=== PATIENT | male | born 1990 | race African-American/Black ===

== ENCOUNTER 2023-05-30 22:19 | Emergency (ER) | payer OTHER ==
[~2023-05-30] VITALS: Ht 185.4 cm; Wt 65.7 kg
[~2023-05-30 22:19] MED LIST: DOXY100C5 MT
[2023-05-30 22:38] VITALS: BP 116/76; PULSE 71; RESP 16; TEMP 98.5; O2SAT 98
[2023-05-30] MEDS ORDERED: SULF1TAB48 MT (23:20)
== END 2023-05-30 23:43 | disposition home or self-care (01) ==
LOC: ER 22:19
DX: L72.3 Sebaceous cyst (principal)
CPT/HCPCS: 99283

== ENCOUNTER 2024-06-21 10:56 | Emergency (ER) | payer OTHER ==
[~2024-06-21] VITALS: Ht 185.4 cm; Wt 68.0 kg
[~2024-06-21 10:56] MED LIST changes: +SULF1TAB48 MT
[2024-06-21 11:05] VITALS: O2SAT 99
[2024-06-21] MEDS ORDERED: PENICILLIN G BENZATHINE 2,400,000 UNITS/4ML SYR IM ONE ×2 (12:45→13:00)
[2024-06-21] MEDS: PENICILLIN G BENZATHINE 2,400,000 UNITS/4ML SYR IM NR (13:22)
[2024-06-21 13:24] VITALS: BP 119/69; PULSE 68; RESP 16; TEMP 37.11408; O2SAT 99
== END 2024-06-21 13:25 | disposition home or self-care (01) ==
LOC: ER 10:56
DX: Z20.2 Contact with and (suspected) exposure to infections with a predominantly sexual mode of transmission (principal)
CPT/HCPCS: 99283; 96372; J0561

== ENCOUNTER 2024-08-17 09:54 | Emergency (ER) | payer OTHER ==
[~2024-08-17] VITALS: Ht 185.4 cm; Wt 68.0 kg
[2024-08-17 09:57] VITALS: O2SAT 100
[2024-08-17 10:06] VITALS: BP 110/47; PULSE 68; RESP 13; TEMP 36.8; O2SAT 98
[2024-08-17] MEDS: PENICILLIN G BENZATHINE 2,400,000 UNITS/4ML SYR IM ONE (10:54)
== END 2024-08-17 11:03 | disposition home or self-care (01) ==
LOC: ER 09:54
DX: A53.9 Syphilis, unspecified (principal); Z79.899 Other long term (current) drug therapy
CPT/HCPCS: 99283; 96372; J0561

== ENCOUNTER 2024-12-27 20:19 | Emergency (ER) | payer OTHER ==
[~2024-12-27] VITALS: Ht 185.4 cm; Wt 72.0 kg
[2024-12-27 20:24] VITALS: O2SAT 96
[2024-12-27 20:31] VITALS: BP 133/57; PULSE 67; RESP 12; TEMP 36.4; O2SAT 100
[2024-12-27 21:00] LABS: BASOPHILS % 0.6 % (0.0-2.0); EOSINOPHILS % 0.2 % (0.0-5.0); HEMATOCRIT. 43.7 % (42.0-52.0); HEMOGLOBIN. 14.6 g/dL (14.0-18.0); LYMPHOCYTES % 23.6 % (20.0-50.0); MEAN PLATELET VOLUME 9.3 fl (7.4-10.4); MONOCYTES % 2.9 % (2.0-8.0); NEUTROPHILS % 72.7 % (40.0-76.0); PLATELET 214 x1000/uL (130-400); RED BLOOD CELL COUNT 4.49 mill/uL (4.7-6.1); RED CELL DISTRIBUTION WIDTH 12.6 % (11.6-14.6)
[2024-12-27 21:15] LABS: INR 1.1
[2024-12-27 21:17] LABS: CREATININE 1.1 mg/dL (0.6-1.3); UREA NITROGEN BLOOD 8 mg/dL (9-23)
[2024-12-27 21:18] LABS: ETHANOL BLOOD < 10 mg/dL (<10)
[2024-12-27 21:19] LABS: ASPARTATE AMINOTRANSFERASE 17 IU/L (<34); BILIRUBIN DIRECT 0.2 mg/dL (<=3.0); BILIRUBIN TOTAL 0.7 mg/dL (0.1-1.0); PROTEIN TOTAL 7.8 g/dL (6.0-8.3)
[2024-12-27] MEDS: ONDANSETRON 4MG ODT PO ONE (21:43)
== END 2024-12-27 23:10 | disposition home or self-care (01) ==
LOC: ER 20:19
DX: K92.0 Hematemesis (principal); F19.90 Other psychoactive substance use, unspecified, uncomplicated
CPT/HCPCS: 80076; 80048; 80320; 83690; 85025; 85610; 86850; 86900; 86901; 36415; 99283; Q0162; G0480